=== PATIENT | male | born 1975 | race Caucasian/White ===

== ENCOUNTER 2016-10-11 06:45 | Emergency (ER) | payer OTHER ==
[~2016-10-11] VITALS: Ht 165.1 cm; Wt 80.7 kg
[~2016-10-11 06:45] MED LIST: NO MEDS
[2016-10-11 06:46] VITALS: BP 117/89
--- NOTE | 2016-10-11 06:56 | NUR ---
AMBULATED TO ER BED 4
--- NOTE | 2016-10-11 07:10 | NUR ---
PATIENT PRESENTS TO ED WITH ANXIETY AND GENERALIZED BODY PAIN . PT STATES THE PAIN HE FEELS IS "EVERYWHERE". STATES THAT SHE NOTICES THAT WHEN HE DRINKS 6+ BEERS, HIS ANXIETY INCREASES AND HE BEGINS TO C/O PAIN . DENIES N/V/D; SKIN IS PINK/WARM/DRY; AAOX4 WITH EVEN AND STEADY GAIT; LUNGS CLEAR BL; HR EVEN AND REGULAR; PT DENIES ANY FEVER, CP, SOB, OR COUGH AT THIS TIME; PATIENT STATES PAIN OF 10/10 AT THIS TIME; VSS; PATIENT POSITIONED FOR COMFORT; HOB ELEVATED; BEDRAILS UP X2; BED DOWN. ER MD MADE AWARE OF PT STATUS. AT BEDSIDE
--- NOTE | 2016-10-11 07:13 | NUR ---
Pt report given to GIOVANY CONNORS. Transfer of care at this time.
[2016-10-11] MEDS ORDERED: ONDANSETRON 4 MG/2 ML VIAL IVP ONE (07:20)
[2016-10-11] MEDS ORDERED: LORazepam 2 MG/ML VIAL IVP ONE ×2 (07:20→08:40)
[2016-10-11] MEDS ORDERED: KETOROLAC 30 MG/ML VIAL IVP ONE (07:20)
[2016-10-11 07:33] LABS: HEMATOCRIT 44.4 % (36-52); HEMOGLOBIN 14.6 g/dL (12.0-18.0); MEAN CORPUSCULAR HEMOGLOBIN 30 pg (27-31); MEAN CORPUSCULAR HGB CONC 33 g/dL (33-37); MEAN CORPUSCULAR VOLUME 92 fL (80-94); PLATELET COUNT (AUTO) 396 K/uL (140-450); RED BLOOD CELL COUNT(AUTO) 4.81 MIL/uL (4.20-6.10); RED CELL DISTRIBUTION WIDTH 13.1 % (11.6-13.7); WHITE BLOOD COUNT (AUTO) 10.2 K/uL (4.8-10.8)
--- NOTE | 2016-10-11 07:37 | NUR ---
XRAY at bedside.
[2016-10-11 07:45] LABS: ANION GAP 16.3 (8-16); CALCIUM 9.1 mg/dL (8.5-10.1); CARBON DIOXIDE 23.4 mmol/L (21-32); CREATININE 1.2 mg/dL (0.6-1.3); POTASSIUM 4.7 mmol/L (3.5-5.1)
[2016-10-11 07:49] LABS: BAND % (MANUAL) 0 % (0-8); BASOPHILS % (MANUAL) 0 % (0-2); EOSINOPHILS % (MANUAL) 0 % (0-4); LYMPHOCYTES % (MANUAL) 10 % (20-46); MONOCYTES % (MANUAL) 5 % (5-12); NEUTROPHILS % (MANUAL) 85 (43-65); PLATELET ESTIMATE ADEQUATE
[2016-10-11 07:50] LABS: TOTAL BILIRUBIN 0.4 mg/dL (0.0-1.0); TOTAL PROTEIN, SERUM 8.5 g/dL (6.4-8.2)
[2016-10-11 08:00] LABS: PARTIAL THROMBOPLASTIN TIME 27.5 secs (22-35.6); PROTHROMBIN TIME 9.9 secs (10.8-13.4)
--- NOTE | 2016-10-11 08:00 | NUR ---
PT ENCOURAGED TO STAY ON BED, HAD REMOVED VS LEADS, WANTS TO WALK AROUND, CALMS HIM DOWN PER PT, WITH THE PT AT ALL TIMES, AWARE
--- NOTE | 2016-10-11 08:02 | NUR ---
PT AMBULATES TO THE RESTROOM
[2016-10-11 09:32] VITALS: BP 128/94
--- NOTE | 2016-10-11 09:32 | NUR ---
AMBULATORY Patient discharged WITH MARTHA WITH HR OF 124, ALL OTHER VS STABLE. Written and verbal after care instructions given and explained. Patient verbalized understanding. Ambulatory with steady gait. All questions addressed prior to discharge. Advised to follow up with PMD.
== END 2016-10-11 09:32 | disposition left against medical advice (07) ==
LOC: MED 06:45
PROC: 3E033GC Introduction of Other Therapeutic Substance into Peripheral Vein, Percutaneous Approach (ICD-10-PCS; principal; 2016-10-11)
PROC: 4A02X4Z Measurement of Cardiac Electrical Activity, External Approach (ICD-10-PCS; 2016-10-11)
DX: F41.9 Anxiety disorder, unspecified (principal); R00.0 Tachycardia, unspecified; R03.0 Elevated blood-pressure reading, without diagnosis of hypertension
CPT/HCPCS: 36415; 71010; 80053; 82948; 83880; 84484; 85025; 85610; 85730; 93005; 96374; 96375; 99285; J1885; J2060; J2405; Q0092

== ENCOUNTER 2019-01-23 15:01 | Emergency (ER) | payer OTHER ==
[~2019-01-23] VITALS: Ht 165.1 cm; Wt 90.3 kg
[2019-01-23 15:11] VITALS: BP 159/99
--- NOTE | 2019-01-23 15:16 | NUR ---
Patient ambulated to bed 5 with family. RN evaluating patient at bedside.
--- NOTE | 2019-01-23 15:20 | NUR ---
C/O RT LOWER BACK PAIN SINCE THIS MORNING. NON-RADIATING CONSTANT THROBING/SHARP PAIN AT 9/10. TX W/ TRAMADOL WITH NO RELIEF. REPORTS HE HAS KIDNEY STONES AND THINKS HE IS TRYING TO PASS THEM, HEMATURIA 3 DAYS AGO, NOT RIGHT NOW MEDHX: KIDNEY STONES RX:TRAMADOL . DENIES N/V/D; SKIN IS PINK/WARM/DRY; AAOX4 WITH EVEN AND STEADY GAIT; LUNGS CLEAR BL; HR EVEN AND REGULAR; PT DENIES ANY FEVER, CP, SOB, OR COUGH AT THIS TIME; PATIENT STATES PAIN OF 9/10 AT THIS TIME; VSS; PATIENT POSITIONED FOR COMFORT; HOB ELEVATED; BEDRAILS UP X2; BED DOWN. ER MD MADE AWARE OF PT STATUS.
[2019-01-23 15:43] LABS: APPEARANCE,URINE CLEAR (CLEAR); BILIRUBIN,URINE NEGATIVE (NEGATIVE); BLOOD, URINE 2+ (NEGATIVE); COLOR,URINE YELLOW (YELLOW); LEUKOCYTE ESTERASE ,URINE NEGATIVE (NEGATIVE); NITRITE, URINE NEGATIVE (NEGATIVE); UGLUCOSE NEGATIVE (NEGATIVE)
[2019-01-23 16:09] LABS: RBC,URINE >20 (MANY) /HPF (0-5); WBC,URINE 0-5 /HPF (0-5)
[2019-01-23 16:10] LABS: URIC ACID CRYSTALS,URINE >100 /HPF (None Seen)
[2019-01-23] MEDS ORDERED: MORPHINE SULFATE 5 MG/ML VIAL IVP ONE (16:25)
[2019-01-23] MEDS ORDERED: ONDANSETRON 4 MG/2 ML VIAL IVP ONE (16:25)
[2019-01-23] MEDS ORDERED: NACL 0.9% 1,000 ML IV ONE (16:25)
--- NOTE | 2019-01-23 16:33 | NUR ---
PT TO CT SCAN VIA RDEER.
[2019-01-23 17:11] LABS: BASOPHILS % (AUTO) 0.3 % (0.0-2.0); EOSINOPHILS # (AUTO) 0.1 K/uL (0-0.4); EOSINOPHILS % (AUTO) 0.7 % (0.0-4.0); HEMOGLOBIN 16.6 g/dL (12.0-18.0); LYMPHOCYTES # (AUTO) 1.1 K/uL (2.0-11.5); LYMPHOCYTES % (AUTO) 11.8 % (20.5-51.1); MEAN CORPUSCULAR HEMOGLOBIN 32 pg (27-31); MEAN CORPUSCULAR HGB CONC 35 g/dL (33-37); MEAN CORPUSCULAR VOLUME 91.3 fL (80-94); MONOCYTES # (AUTO) 0.6 K/uL (0.8-1.0); MONOCYTES % (AUTO) 6.6 % (1.7-9.3); NEUTROPHILS # (AUTO) 7.4 K/uL (1.8-7.7); NEUTROPHILS % (AUTO) 80.6 % (42.2-75.2); PLATELET COUNT (AUTO) 266 K/uL (140-450); RED BLOOD CELL COUNT(AUTO) 5.26 MIL/uL (4.20-6.10); RED CELL DISTRIBUTION WIDTH 13.6 % (11.6-13.7); WHITE BLOOD COUNT (AUTO) 9.2 K/uL (4.8-10.8)
[2019-01-23 17:20] LABS: ANION GAP 13.9 (8-16); CARBON DIOXIDE 27.9 mmol/L (21-32); CREATININE 1.6 mg/dL (0.7-1.3); POTASSIUM 4.8 mmol/L (3.5-5.1)
[2019-01-23 17:26] LABS: ALBUMIN 4.3 g/dL (3.4-5.0); TOTAL BILIRUBIN 0.5 mg/dL (0.0-1.0)
--- NOTE | 2019-01-23 17:38 | NUR ---
PT STATED PAIN RELIEVED BUT STILL HAVE PAIN.
[2019-01-23] MEDS ORDERED: MORPHINE SULFATE 4 MG/ML SYR IVP ONE (17:40)
--- NOTE | 2019-01-23 18:18 | NUR ---
PT STATED PAIN RELIEVED.
[2019-01-23] MEDS ORDERED: HYDROcodone/APAP 7.5/325 MG 1 TAB PO ONE (18:50)
[2019-01-23 18:57] VITALS: BP 137/87
--- NOTE | 2019-01-23 18:58 | NUR ---
Patient discharged with v/s stable. Written and verbal after care instructions given and explained. Patient alert, oriented and verbalized understanding of instructions. Ambulatory with steady gait. All questions addressed prior to discharge. ID band removed. Patient advised to follow up with PMD. Rx of ZOFRAN, IBUPROFEN AND FLOMAX given. Patient educated on indication of medication including possible reaction and side effects. Opportunity to ask questions provided and answered.
== END 2019-01-23 18:56 | disposition home or self-care (01) ==
LOC: MED 15:01
DX: N20.0 Calculus of kidney (principal); R31.0 Gross hematuria; R03.0 Elevated blood-pressure reading, without diagnosis of hypertension
CPT/HCPCS: 36415; 74176; 80053; 81001; 83690; 85025; 87086; 96374; 96375; 96376; 99284; J2270; J2405; J7030

== ENCOUNTER 2019-07-15 16:20 | Emergency (ER) | payer OTHER ==
[~2019-07-15] VITALS: Ht 165.1 cm; Wt 83.9 kg
[2019-07-15 16:26] VITALS: BP 139/90
--- NOTE | 2019-07-15 16:30 | NUR ---
PT PLACED IN LOBBY, AMBULATED WITH FAMILY PRESENT
--- NOTE | 2019-07-15 17:10 | NUR ---
PT AMBULATED TO BED 10.
--- NOTE | 2019-07-15 18:00 | NUR ---
44 YEAR OLD MALE COMPLAINS OF SHARP LEFT FLANK PAIN 10/10 FOR THE PAST 2 DAYS. PATIENT STATES NAUSEA AND VOMITTING PRESENT. PATIENT STATES HE HAS A HISTORY OF KIDNEY STONES AND THAT HE IS FEELING SIMILAR SYMPTOMS. PATIENT STATES HE SEES SOME BLOOD IN THE URINE. PATIENT ALERT AND ORIENTED, BREATHING EVEN AND UNLABORED, SKIN WARM AND DRY. BED IN LOWEST POSITION, LOCKED, BED RAIL UPX1. AT BEDSIDE.
--- NOTE | 2019-07-15 18:47 | NUR ---
PT SITTING ON BED, RR EVEN AND MILDLY LABORED WITH FACIAL GRIMACING, REPORTS 10/10 L LOWER/MID BACK PAIN, X2 DAYS. VS NOTED. ALL NEEDS MET AT THIS TIME.
[2019-07-15] MEDS ORDERED: NACL 0.9% 1,000 ML IV ONE (19:25)
[2019-07-15] MEDS ORDERED: KETOROLAC 30 MG/ML VIAL IVP ONE (19:25)
[2019-07-15] MEDS ORDERED: MORPHINE SULFATE 4 MG/ML SYR IVP ONE ×2 (19:25→21:15)
[2019-07-15 20:36] LABS: APPEARANCE,URINE HAZY (CLEAR); BILIRUBIN,URINE NEGATIVE (NEGATIVE); BLOOD, URINE 3+ (NEGATIVE); COLOR,URINE YELLOW (YELLOW); LEUKOCYTE ESTERASE ,URINE NEGATIVE (NEGATIVE); NITRITE, URINE NEGATIVE (NEGATIVE); PH,URINE 5.5 (5.0-9.0); UGLUCOSE NEGATIVE (NEGATIVE)
[2019-07-15 20:37] LABS: BASOPHILS % (AUTO) 0.4 % (0.0-2.0); EOSINOPHILS # (AUTO) 0.1 K/uL (0-0.4); EOSINOPHILS % (AUTO) 1.5 % (0.0-4.0); HEMATOCRIT 44.6 % (36-52); LYMPHOCYTES # (AUTO) 1.5 K/uL (2.0-11.5); LYMPHOCYTES % (AUTO) 17.1 % (20.5-51.1); MEAN CORPUSCULAR HEMOGLOBIN 32 pg (27-31); MEAN CORPUSCULAR HGB CONC 34 g/dL (33-37); MEAN CORPUSCULAR VOLUME 93.8 fL (80-94); MONOCYTES # (AUTO) 0.7 K/uL (0.8-1.0); MONOCYTES % (AUTO) 7.5 % (1.7-9.3); NEUTROPHILS # (AUTO) 6.4 K/uL (1.8-7.7); NEUTROPHILS % (AUTO) 73.5 % (42.2-75.2); PLATELET COUNT (AUTO) 306 K/uL (140-450); RED BLOOD CELL COUNT(AUTO) 4.76 MIL/uL (4.20-6.10); RED CELL DISTRIBUTION WIDTH 12.6 % (11.6-13.7); WHITE BLOOD COUNT (AUTO) 8.7 K/uL (4.8-10.8)
[2019-07-15 20:47] LABS: CALCIUM OXALATE CRYSTALS,UR 0-10 /HPF (None Seen); RBC,URINE 80-100 /HPF (0-5); WBC,URINE 0-5 /HPF (0-5)
[2019-07-15 20:56] LABS: ANION GAP 15.7 (8-16); CARBON DIOXIDE 26.7 mmol/L (21-32); CREATININE 2.4 mg/dL (0.7-1.3); POTASSIUM 4.4 mmol/L (3.5-5.1)
[2019-07-15 21:02] LABS: ALBUMIN 4.3 g/dL (3.4-5.0); TOTAL BILIRUBIN 0.4 mg/dL (0.0-1.0)
--- NOTE | 2019-07-15 21:10 | NUR ---
ERMD MADE AWARE OF VITAL SIGNS
[2019-07-15 21:53] VITALS: BP 169/105
--- NOTE | 2019-07-15 21:53 | NUR ---
DISCHARGE DONE BY DOCTOR MARY WITH LAST VITAL SIGNS STABLE. Written and verbal after care instructions ABOUT KIDNEY STONES given and explained. Patient alert, oriented and verbalized understanding of instructions. Ambulatory with steady gait. All questions addressed prior to discharge. ID band removed. Patient advised to follow up with PMD. Rx of NAPROSYN given. Patient educated on indication of medication including possible reaction and side effects. Opportunity to ask questions provided and answered.
== END 2019-07-15 21:53 | disposition home or self-care (01) ==
LOC: MED 16:20
DX: N23 Unspecified renal colic (principal); R11.2 Nausea with vomiting, unspecified; Z87.442 Personal history of urinary calculi
CPT/HCPCS: 36415; 74176; 80053; 81001; 85025; 96361; 96374; 96375; 96376; 99284; J1885; J2270

== ENCOUNTER 2021-07-26 09:15 | Emergency (ER) | payer OTHER ==
[~2021-07-26] VITALS: Ht 165.1 cm; Wt 86.2 kg
[2021-07-26 09:27] VITALS: BP 176/79
--- NOTE | 2021-07-26 09:35 | NUR ---
PT TO DELFINA Mark
[2021-07-26] MEDS ORDERED: NACL 0.9% 1,000 ML IV ONE (09:40)
[2021-07-26] MEDS ORDERED: ONDANSETRON 4 MG/2 ML VIAL IVP ONE (09:40)
[2021-07-26] MEDS ORDERED: LORazepam 2 MG/ML VIAL IVP ONE (10:05)
[2021-07-26] MEDS ORDERED: KETOROLAC 30 MG/ML VIAL IVP ONE (10:05)
[2021-07-26] MEDS ORDERED: IBUP-2213 PO (10:07)
[2021-07-26] MEDS ORDERED: ONDA8TAB87 PO (10:07)
[2021-07-26] MEDS ORDERED: ATA25 PO (10:07)
--- NOTE | 2021-07-26 10:12 | NUR ---
PT STANDING UP REMINDED TO SIT ON CHAIR DUE TO IV AND PT PRIVACY. SECURITY PAGED. PT COOPERATING.
--- NOTE | 2021-07-26 10:33 | NUR ---
PT PULLED ON IV WANTING TO GO HOME, AWARE, PRESSURE APPLIED 2 MIN BLEEDING CONTROLLED. DC PAPER WORK PROVIDED.
[2021-07-26 10:39] VITALS: BP 149/82
--- NOTE | 2021-07-26 10:39 | NUR ---
Patient discharged with v/s stable. Written and verbal after care instructions given FOR PANIC ATTACK AND MUSCLE PAIN and explained. Patient alert, oriented and verbalized understanding of instructions. Ambulatory with steady gait. All questions addressed prior to discharge. ID band removed. Patient advised to follow up with PMD. Rx of ATARAX, IBUPROFEN, AND ZOFRAN given. Patient educated on indication of medication including possible reaction and side effects. Opportunity to ask questions provided and answered.
== END 2021-07-26 10:39 | disposition home or self-care (01) ==
LOC: MED 09:15
DX: M79.10 Myalgia, unspecified site (principal); R11.0 Nausea; F41.9 Anxiety disorder, unspecified; Z79.899 Other long term (current) drug therapy
CPT/HCPCS: 96361; 96374; 96375; 99284; J1885; J2060; J2405; J7030

== ENCOUNTER 2022-11-01 07:10 | Emergency (ER) | payer OTHER ==
[~2022-11-01] VITALS: Ht 165.1 cm; Wt 83.9 kg
[~2022-11-01 07:10] MED LIST changes: +ATA25 PO; +IBUP-2213 PO; +ONDA8TAB87 PO
[2022-11-01 07:18] VITALS: BP 144/90
[2022-11-01] MEDS ORDERED: NACL 0.9% 1,000 ML IV SCH (07:20)
[2022-11-01] MEDS ORDERED: LORazepam 2 MG/ML VIAL IVP ONE ×3 (07:25→09:30)
--- NOTE | 2022-11-01 07:28 | NUR ---
REPORT RECEIVED FROM LORNA ADAIR, TRANSFER OF CARE AT THIS TIME. RECEIVED PT IN BED, ON 4LPM NC, RR 16. TITRATED O2 TO 1LPM, SATTING 98% RA, RR 14, DR MOORE MADE AWARE
--- NOTE | 2022-11-01 07:30 | NUR ---
report given to Sherrie ADAIR
--- NOTE | 2022-11-01 07:47 | NUR ---
PT REMOVED O2 SATTING AT 99% RA
[2022-11-01 07:48] LABS: BASOPHILS # (AUTO) 0.1 K/uL (0.00-0.22); BASOPHILS % (AUTO) 0.6 % (0.0-2.0); EOSINOPHILS % (AUTO) 0.1 % (0.0-4.0); HEMATOCRIT 42.2 % (36-52); HEMOGLOBIN 14.7 g/dL (12.0-18.0); LYMPHOCYTES # (AUTO) 1.3 K/uL (2.0-11.5); LYMPHOCYTES % (AUTO) 14.5 % (20.5-51.1); MEAN CORPUSCULAR HEMOGLOBIN 31 pg (27-31); MEAN CORPUSCULAR HGB CONC 35 g/dL (33-37); MEAN CORPUSCULAR VOLUME 89.8 fL (80-94); MONOCYTES # (AUTO) 0.5 K/uL (0.8-1.0); MONOCYTES % (AUTO) 5.5 % (1.7-9.3); NEUTROPHILS # (AUTO) 7.3 K/uL (1.8-7.7); NEUTROPHILS % (AUTO) 79.3 % (42.2-75.2); PLATELET COUNT (AUTO) 377 K/uL (140-450); RED CELL DISTRIBUTION WIDTH 13.3 % (11.6-13.7); WHITE BLOOD COUNT (AUTO) 9.2 K/uL (4.8-10.8)
--- NOTE | 2022-11-01 08:34 | NUR ---
PT NOTED TO BE MORE AGITATED, CIRCLING AROUND IN BED, DR MOORE MADE AWARE
[2022-11-01] MEDS ORDERED: ZIPRASIDONE MESYLATE 20 MG/ML VIAL IM ONE (08:35)
[2022-11-01] MEDS ORDERED: WATER STERILE 10 ML MC ONE (08:46)
[2022-11-01 08:47] LABS: ALBUMIN 4.2 g/dL (3.4-5.0); ANION GAP 21.1 (8-16); CARBON DIOXIDE 21.9 mmol/L (21-32); CREATININE 1.4 mg/dL (0.6-1.3); TOTAL BILIRUBIN 0.3 mg/dL (0.0-1.0)
[2022-11-01 08:50] LABS: ACETAMINOPHEN < 0.5 ug/ml (10-30); SALICYLATE < 2.8 mg/dL (2.8-20.0)
[2022-11-01] MEDS ORDERED: NACL 0.9% 1,000 ML IV ONE (08:55)
[2022-11-01 09:14] LABS: ACETONE, SERUM NEGATIVE (NEGATIVE)
--- NOTE | 2022-11-01 09:20 | NUR ---
Mayuri vickangela in ED - 11/01/22 at 1105 by TOMER PT CONTINUED TO BE AGITATED, SCREAMING, ROLLING AROUND IN BED, TRYING TO GET OUT OF BED, TUGGING AND ATTEMPTING TO REMOVE IV, DR TERESA BORGES, CONTINUE PLAN OF CARE
--- NOTE | 2022-11-01 09:20 | NUR ---
PT NOTED TO BE ROLLING IN BED, KICKING AND SWINGING ARMS, AT BEDSIDE WITH NURSE ATTEMPTING TO REORIENT PT, LIGHTS TURNED ON, REMOVED GOWN PT STATES THAT HE FEELS WARM.
[2022-11-01] MEDS ORDERED: HALOPERIDOL IM 5 MG/ML VIAL IM ONE ×2 (09:30→10:15)
[2022-11-01] MEDS ORDERED: HALOPERIDOL IM 5 MG/ML VIAL ONE (09:30)
[2022-11-01] MEDS ORDERED: diphenhydrAMINE 50 MG/ML VIAL IVP ONE (09:50)
--- NOTE | 2022-11-01 09:50 | NUR ---
PT SEEN WITH AT BEDSIDE,PT OUT OF BED, UNSTEADY ON GAIT, SWINGING ARMS AROUND AND KICKING, PLACED BACK ON BED WITH ASSISTANCE.
--- NOTE | 2022-11-01 10:00 | NUR ---
Mayuri vickangela in [facility] - 11/01/22 at 1058 by TOMER DURING STRAIGHT CATHETERIZATION, PT PULLED OUT STRAIGHT CATHETER AND PEED ON NURSE, CONTINUED TO REORIENT PATIENT, PT DIFFICULT TO REORIENT, AT BEDSIDE, ATTEMPTING TO DECREASE AGITATION WITH NO EFFECT
--- NOTE | 2022-11-01 10:00 | NUR ---
Note eliot in ED - 11/01/22 at 1058 by TOMER # 16 FR Urinary catheter inserted utilizing sterile technique. Immediate return of 200 ml CLEAR YELLOW urine noted. Urine sample collected and sent to lab. Pt tolerated procedure.
--- NOTE | 2022-11-01 10:00 | NUR ---
# 16 FR Urinary catheter inserted utilizing sterile technique. Immediate return of 200 ml CLEAR YELLOW urine noted. Urine sample collected and sent to lab. DURING STRAIGHT CATHETERIZATION, PT PULLED OUT STRAIGHT CATHETER AND PEED ON NURSE, CONTINUED TO ATTEMPT TO REORIENT PATIENT, PT DIFFICULT TO REORIENT, AT BEDSIDE, ATTEMPTING TO DECREASE AGITATION WITH NO EFFECT
[2022-11-01] MEDS ORDERED: KETAMINE 500 MG/5 ML VIAL IVP ONE (10:05)
[2022-11-01 10:07] LABS: APPEARANCE,URINE CLEAR (CLEAR); BILIRUBIN,URINE NEGATIVE (NEGATIVE); BLOOD, URINE 2+ (NEGATIVE); COLOR,URINE YELLOW (YELLOW); LEUKOCYTE ESTERASE ,URINE NEGATIVE (NEGATIVE); NITRITE, URINE NEGATIVE (NEGATIVE); UGLUCOSE NEGATIVE (NEGATIVE)
--- NOTE | 2022-11-01 10:20 | NUR ---
Patient/ does not wish to proceed with medical care recommended by DR MOORE . Patient given information related to possible complications, up to and including , which could occur as a result of leaving hospital at this time. Patient/ verbalizes understanding of risks involved leaving against medical advice. Patient/ has signed AMA form.
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
[2022-11-01 10:27] LABS: RBC,URINE 11-20 (MOD) /HPF (0-5); WBC,URINE 0-5 /HPF (0-5)
[2022-11-01 10:38] LABS: BARBITURATE, URINE NEGATIVE ng/ml (NEG <=200); BENZODIAZEPINE, URINE POSITIVE ng/mL (NEG <=200); CANNABINOID, URINE NEGATIVE ng/mL (NEG <=50); COCAINE, URINE POSITIVE ng/mL (NEG <=300); OPIATE, URINE NEGATIVE ng/mL (NEG <=2000); PHENCYCLIDINE SCREEN,URINE NEGATIVE ng/mL (NEG <=25)
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
--- NOTE | 2022-11-01 11:32 | NUR ---
BETO ONTIVEROS PRESENT- OFFICERS ABI #[id number]. REPORT #[id number]
== END 2022-11-01 10:20 | disposition left against medical advice (07) ==
LOC: MED 07:10
DX: F14.10 Cocaine abuse, uncomplicated (principal); F10.129 Alcohol abuse with intoxication, unspecified; R07.9 Chest pain, unspecified; Z79.899 Other long term (current) drug therapy; Y90.9 Presence of alcohol in blood, level not specified
CPT/HCPCS: 36415; 71045; 80053; 80305; 81001; 82009; 82550; 82553; 83605; 83690; 83880; 84484; 85025; 85379; 87040; 87086; 93005; 96361; 96372; 96374; 96375; 96376; 99285; G0480; G0482; J1200; J1630; J2060; J3486; J7030